=== PATIENT | female | born 1975 | race Caucasian/White ===

== ENCOUNTER 2018-12-14 09:11 | Emergency (ER) | payer SELFPAY ==
[2018-12-14 09:18] VITALS: BP 157/100
[2018-12-14] MEDS ORDERED: TETRACAINE HCL 0.5% OPH SOLN 4 ML OS ONE (09:44)
--- NOTE | 2018-12-14 10:05 | ER Document Report ---
ED Eye Complaint - General Chief Complaint: Eye Pain Stated Complaint: EYE PROBLEM Time Seen by Provider: 12/14/18 09:43 Primary Care Provider: [facility] [Provider Group] - Follow up as needed AGNES WATKINS [NO LOCAL MD] - Follow up as needed Mode of Arrival: Ambulatory Information source: Patient Notes: 43-year-old female presented to ED for complaint of left eye irritation and drainage. She states she woke up about 2:00 with pain in her eye. She states she took her contact lens out at that time. She states she has had eye drainage and pain in the eyes since then. She is patting her eye there is no redness surrounding her eye in her eye does not look red at this time but there is drainage. She is frequently touching her eye. She does have a runny nose congestion. TRAVEL OUTSIDE OF THE [place] IN LAST 30 DAYS: No - HPI Eye location: Left Injury: No Occurred at: Home, Indoors Quality of pain: Burning Severity: Severe Pain Level: 5 Contact lenses worn: Yes - removed at 2 am Contact lenses: Sleeps in them Associated symptoms: Burning, Pain - Related Data Allergies/Adverse Reactions: No Known Allergies Allergy (Verified 12/14/18 09:23) Past Medical History - General Information source: Patient - Social History Smoking Status: Current Every Day Smoker Cigarette use (# per day): Yes - ppd Smoking Education Provided: Yes - 4 min Frequency of alcohol use: Social Drug Abuse: Marijuana Lives with: Family Family History: Reviewed & Not Pertinent Patient has suicidal ideation: No Patient has homicidal ideation: No - Past Medical History Cardiac Medical History: Reports: Hx Hypertension Pulmonary Medical History: Reports: None EENT Medical History: Reports: None Neurological Medical History: Reports: Hx Migraine Endocrine Medical History: Reports: Hx Diabetes Mellitus Type 2 Renal/ Medical History: Reports: None Malignancy Medical History: Reports: None GI Medical History: Reports: None Musculoskeletal Medical History: Reports None Skin Medical History: Reports None Psychiatric Medical History: Reports: None Traumatic Medical History: Reports: None Infectious Medical History: Reports: None Past Surgical History: Reports: Hx Cholecystectomy - Immunizations Immunizations up to date: No Hx Diphtheria, Pertussis, Tetanus Vaccination: No Review of Systems - Review of Systems Constitutional: No symptoms reported EENT: Eye pain, Eye discharge, Blurred vision, Tearing Cardiovascular: No symptoms reported Respiratory: No symptoms reported Gastrointestinal: No symptoms reported Genitourinary: No symptoms reported Female Genitourinary: No symptoms reported Musculoskeletal: No symptoms reported Skin: No symptoms reported Hematologic/Lymphatic: No symptoms reported Neurological/Psychological: No symptoms reported -: Yes All other systems reviewed and negative Physical Exam - Vital signs Vitals: Temp Pulse Resp BP Pulse Ox 98.6 F 85 14 157/100 H 99 12/14/18 09:16 12/14/18 09:16 12/14/18 09:16 12/14/18 09:16 12/14/18 09:16 Interpretation: Normal - General General appearance: Appears well, Alert - HEENT Head: Normocephalic, Atraumatic Eyes: Normal Cornea: Normal. No: Embedded foreign body, Flourescein stain uptake Pupils: PERRL Lids everted for exam: bilateral: Normal Visual krishnan normal: Yes Ears: Normal External canal: Normal Tympanic membrane: Normal Sinus: Normal Nasal: Purulent discharge, Swelling Mouth/Lips: Normal Mucous membranes: Normal Pharynx: Post nasal drainage Neck: Normal - Respiratory Respiratory status: No respiratory distress Chest status: Nontender Breath sounds: Normal Chest palpation: Normal - Cardiovascular Rhythm: Regular Heart sounds: Normal auscultation Murmur: No - Abdominal Inspection: Normal Distension: No distension Bowel sounds: Normal Tenderness: Nontender Organomegaly: No organomegaly - Back Back: Normal, Nontender - Extremities General upper extremity: Normal inspection, Nontender, Normal color, Normal ROM, Normal temperature General lower extremity: Normal inspection, Nontender, Normal color, Normal ROM, Normal temperature, Normal weight bearing. No: Soy's sign - Neurological Neuro grossly intact: Yes Cognition: Normal Orientation: AAOx4 [place] Coma Scale Eye Opening: Spontaneous [place] Coma Scale Verbal: Oriented [place]ria Coma Scale Motor: Obeys Commands [place] Coma Scale Total: 15 Speech: Normal Motor strength normal: LUE, RUE, LLE, RLE Sensory: Normal - Psychological Associated symptoms: Normal affect, Normal mood - Skin Skin Temperature: Warm Skin Moisture: Dry Skin Color: Normal Course - Re-evaluation Re-evalutation: 12/14/18 14:[address] Garcia who came and examined the eye. He recommended patient be placed on antibiotic eyedrops. Her primary demonstrator knitting was called and they stated they could see her at the active care center in [place] at 230. Patient was informed that she was to be at the care center and [place] while at [address] and she was discharged home with a bottle of Polytrim for her eye. Patient was instructed not to put in her contact lens until she has been followed up with the demonstrator knitting. Patient verbalized she was going to be sure to keep her appointment as scheduled at the demonstrator knitting. - Vital Signs Vital signs: Temp Pulse Resp BP Pulse Ox 98.6 F 85 14 157/100 H 99 12/14/18 09:16 12/14/18 09:16 12/14/18 09:16 12/14/18 09:16 12/14/18 09:16 Discharge - Discharge Clinical Impression: URI (upper respiratory infection) Qualifiers: URI type: unspecified viral URI Qualified Code(s): J06.9 - Acute upper respiratory infection, unspecified Conjunctivitis, left eye Qualifiers: Conjunctivitis type: unspecified Qualified Code(s): H10.9 - Unspecified conjunctivitis Condition: Stable Disposition: HOME, SELF-CARE Additional Instructions: UPPER RESPIRATORY ILLNESS: You have a viral infection of the respiratory passages -- a "cold." This common infection causes nasal congestion, drainage, and often sore throat and cough. It is highly contagious. The disease usually lasts about 10 to 14 days. There is no "cure" for the viral infection -- it must run its course. If there is a complication, such as bacterial infection in the nose, sinuses, middle ear, or bronchial tubes, antibiotics may be required. The antibiotics won't affect the virus. Drink plenty of fluids. A humidifier may help. An expectorant medication or decongestant may make you more comfortable. Use acetaminophen or ibuprofen for fever or aches. See the doctor if fever persists over two days, if there is any significant worsening of your symptoms, or if you simply fail to improve as expected. CONJUNCTIVITIS: You have an infection in your eye, commonly known as "pink eye." Conjunctivitis causes redness, mild discomfort, itching, and mattering on the eyelids. It is very contagious, so you must be careful to wash your hands after touching your face so you don't pass the infection on to others. Conjunctivitis is caused by both viruses and bacteria. It usually responds quickly to treatment with antibiotic drops. These should be placed in the eye as prescribed (usually every three to four hours while you're awake). If you wear contact lenses, don't put them in your eyes until the infection is cleared and you are no longer using the drops (unless your doctor advises you otherwise). Should you develop increasing eye pain, severe swelling, decreased vision, or fail to improve as expected, please return for re-examination. EYEDROP USE: Eyedrops are most easily applied by pulling down on the cheek just below the lower eyelid. The lower lid will pop out to form a pouch into which you can drop the medicine. A small brief sting is not unusual, especially if the eye is reddened and irritated already. Use the drops exactly as recommended. You should see the doctor at once if there is a decrease in vision, swelling of the eye, or an increase in discomfort. ANTIBIOTIC THERAPY: You have been given an antibiotic prescription. It's important that you take all the medication, unless instructed otherwise by your physician. Failure to complete the entire course can result in relapse of your condition. Common side effects of antibiotics include nausea, intestinal cramping, or diarrhea. Women may develop vaginal yeast infections, and babies can get yeast (thrush) in the mouth following the use of antibiotics. Contact your physician if you develop significant side effects from this medication. Allergy to this antibiotic can result in hives, wheezing, faintness, or itching. If symptoms of allergy occur, stop the medication and call the doctor. USE OF ACETAMINOPHEN (Tylenol): Acetaminophen may be taken for pain relief or fever control. It's much safer than aspirin, offering a wider range of "safe" dosages. It is safe during . Some brand names are Tylenol, Panadol, Datril, Anacin 3, Tempra, and Liquiprin. Acetaminophen can be repeated every four hours. The following are maximum recommended dosages: >89 pounds or adults 650 mg to 900 mg Acetaminophen can be repeated every four hours. Maximum dose not to exceed 4000 mg a day. SMOKING: If you smoke, you should stop smoking. The tar and chemicals in cigarette smoke are harmful. Smoking has been shown to cause: emphysema chronic bronchitis lung cancer mouth and throat cancer stomach and pancreas cancer premature aging defects In addition, smoking increases ear and lung infections in children of smokers. FOLLOW-UP CARE: If you have been referred to a physician for follow-up care, call the physicians office for an appointment as you were instructed or within the next two days. If you experience worsening or a significant change in your symptoms, notify the physician immediately or return to the Emergency Department at any time for re-evaluation. I have called [facility] center in [place] who you state are it is your eye doctor and they will see you at [address] today please be sure to be present at this appointment to follow-up with your I thank you Forms: Elevated Blood Pressure, Smoking Cessation Education Referrals: JUNE,NO [NO LOCAL MD] - Follow up as needed [facility] [Provider Group] - Follow up as needed
[2018-12-14] MEDS ORDERED: POLYMYXIN B SULFATE/TMP OPH SOLN (10 ML/ER DISP) OS SCH (10:30)
== END 2018-12-14 10:40 | disposition home or self-care (01) ==
LOC: ER 09:11
DX: J06.9 Acute upper respiratory infection, unspecified (principal); H10.9 Unspecified conjunctivitis; H57.12 Ocular pain, left eye; R09.89 Other specified symptoms and signs involving the circulatory and respiratory systems; R09.81 Nasal congestion; F17.210 Nicotine dependence, cigarettes, uncomplicated; I10 Essential (primary) hypertension; E11.9 Type 2 diabetes mellitus without complications
CPT/HCPCS: 99406; 99283; J3490 ×2

== ENCOUNTER 2020-01-31 14:37 | Emergency (ER) | payer BC ==
--- NOTE | 2020-01-31 15:57 | ER Document Report ---
ED Extremity Problem, Upper - General Chief Complaint: Arm Pain Stated Complaint: RIGHT ARM PAIN Time Seen by Provider: 01/31/20 15:46 Primary Care Provider: [facility] [[facility]] - Follow up as needed Mode of Arrival: Ambulatory Information source: Patient Notes: 44-year-old female presented to ED for complaint of right arm elbow and shoulder pain. 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 She is alert oriented respirations regular nonlabored speaking in full sentences. TRAVEL OUTSIDE OF THE [place] IN LAST 30 DAYS: No - HPI Patient complains to provider of: Injury, Pain, Right, Elbow, Forearm, Shoulder Onset: This morning Recent injury: Possibly Where: Work Quality of pain: Burning, Sharp Severity of pain: Moderate Pain Level: 3 Context: Other - Lifting Exacerbated by: Movement Relieved by: Rest, Positioning Similar symptoms previously: No Recently seen / treated by doctor: No - Related Data Allergies/Adverse Reactions: No Known Allergies Allergy (Verified 01/31/20 15:39) Past Medical History - General Information source: Patient - Social History Smoking Status: Current Every Day Smoker Chew tobacco use (# tins/day): No Frequency of alcohol use: Rare Drug Abuse: None Occupation: Care Lives with: Spouse/Significant other Family History: Reviewed & Not Pertinent Patient has suicidal ideation: No Patient has homicidal ideation: No - Past Medical History Cardiac Medical History: Reports: None, Hx Hypertension Pulmonary Medical History: Reports: Hx Bronchitis, Hx Pneumonia EENT Medical History: Reports: None Neurological Medical History: Reports: Hx Migraine Endocrine Medical History: Reports: Hx Diabetes Mellitus Type 2 Renal/ Medical History: Reports: None Malignancy Medical History: Reports: None GI Medical History: Reports: None Musculoskeletal Medical History: Reports Hx Arthritis, Reports Hx Musculoskeletal Deformity Skin Medical History: Reports None Psychiatric Medical History: Reports: None Traumatic Medical History: Reports: None Infectious Medical History: Reports: None Past Surgical History: Reports: Hx Cholecystectomy, Other - Colege - Immunizations Immunizations up to date: No Hx Diphtheria, Pertussis, Tetanus Vaccination: No Review of Systems - Review of Systems Constitutional: No symptoms reported EENT: No symptoms reported Cardiovascular: No symptoms reported Respiratory: No symptoms reported Gastrointestinal: No symptoms reported Genitourinary: No symptoms reported Female Genitourinary: No symptoms reported Musculoskeletal: Joint pain, Muscle pain, Muscle stiffness. denies: Joint swelling Skin: No symptoms reported Hematologic/Lymphatic: No symptoms reported Neurological/Psychological: No symptoms reported -: Yes All other systems reviewed and negative Physical Exam - Vital signs Vitals: Temp Pulse Resp BP Pulse Ox 98.0 F 91 18 149/100 H 100 01/31/20 14:44 01/31/20 14:44 01/31/20 14:44 01/31/20 14:44 01/31/20 14:44 Interpretation: Normal - General General appearance: Appears well, Alert - HEENT Head: Normocephalic, Atraumatic Eyes: Normal Pupils: PERRL - Respiratory Respiratory status: No respiratory distress Chest status: Nontender Breath sounds: Normal Chest palpation: Normal - Cardiovascular Rhythm: Regular Heart sounds: Normal auscultation Murmur: No - Abdominal Inspection: Normal Distension: No distension Bowel sounds: Normal Tenderness: Nontender Organomegaly: No organomegaly - Back Back: Normal, Nontender - Extremities General upper extremity: Normal color, Normal ROM, Normal temperature General lower extremity: Normal inspection, Nontender, Normal color, Normal ROM, Normal temperature, Normal weight bearing. No: Soy's sign Shoulder: Tender Arm: Tender Elbow: Tender - Neurological Neuro grossly intact: Yes Cognition: Normal Orientation: AAOx4 Andria Coma Scale Eye Opening: Spontaneous [place] Coma Scale Verbal: Oriented [place] Coma Scale Motor: Obeys Commands Andria Coma Scale Total: 15 Speech: Normal Motor strength normal: LUE, RUE, LLE, RLE Sensory: Normal - Psychological Associated symptoms: Normal affect, Normal mood - Skin Skin Temperature: Warm Skin Moisture: Dry Skin Color: Normal Course - Re-evaluation Re-evalutation: 01/31/20 18:32 X-ray of shoulder and elbow were both negative. Patient was instructed elevation ice, exercise, and follow-up with orthopedics or sports medicine. X- rays reports were given to patient to follow-up. Patient was able to verbalize understanding and agreement with treatment plan and patient was discharged home. - Vital Signs Vital signs: Temp Pulse Resp BP Pulse Ox 98.4 F 87 16 137/99 H 99 01/31/20 16:54 01/31/20 16:54 01/31/20 16:54 01/31/20 16:54 01/31/20 16:54 - Diagnostic Test Radiology reviewed: Image reviewed, Reports reviewed Procedures - Immobilization Right Elbow Time completed: 17:05 Pre-Proc Neuro Vasc Exam: Normal Immobilizer type: Sling Performed by: PCT Post-Proc Neuro Vasc Exam: Normal Alignment checked and good: No Discharge - Discharge Clinical Impression: Pain of both elbows Pain in right shoulder Qualifiers: Chronicity: acute Qualified Code(s): M25.511 - Pain in right shoulder Condition: Stable Disposition: HOME, SELF-CARE Additional Instructions: You were seen today for pain in your right shoulder and elbow. X-rays to the joints are negative. You state you felt a tearing sensation which could be a muscle or tendon or ligament. I will have you follow-up with the primary care and/or orthopedics. Please call your Worker's [employer]. doctor today call your work and schedule a follow-up appointment with a sports medicine or orthopedic Ice Packs Apply ice packs frequently against the painful area. Many different schedules are recommended, such as "20 minutes on, 20 minutes off" or "one hour ice, two hours rest." If you need to work, you may need to go longer between ice treatments. You should plan to have the area ice packed AT LEAST one fourth of the time. The ice should be applied over the wrap, tape, or splint, or over a layer of cloth -- not directly against the skin. Some ice bags have a built-in cloth and can be put directly on the skin. Warm Packs After approximately two days, apply gentle heat (such as a heating pad or hot water bottle) for about 20 to 30 minutes about every two hours -- at least four times daily. Warmth and elevation will help you make a more rapid recovery, and will ease the pain considerably. Do not use HOT heat, and never apply heat for longer than 30 minutes. The continuous heat can invisibly damage skin and muscles -- even when no burn is seen on the surface. Damaged muscles can make you MORE sore. Exercise Program for the Shoulder Since the shoulder moves in so many directions, the joint attachment is weak. Muscles provide most of the stability to the shoulder. You must exercise your shoulder to prevent painful instability or stiffening. PASSIVE - These may be begun within a few days of the injury. While standing, lean forward, allowing the arm to hang down towards the floor. Move the arm in small circles while slowly twisting your chest towards and away from the hanging arm. Do this for one minute. ACTIVE - These may be performed when the doctor gives permission. Begin with the arms at the sides. Raise the arms forward (shoulder's width apart) until they reach shoulder level. Then slowly swing both arms back until they are aiming straight out away from each other. Then bring them forward again, and finally, lower them to your sides. Repeat 20 to 30 times. As you improve, put weights in your hands for the exercise. Start with one pound, and work up to 10 pounds. Never use more than is comfortable. Athletes may work up to 30 pounds. Please do full range of motion to your elbow frequently to reduce frozen joint. FOLLOW-UP CARE: If you have been referred to a physician for follow-up care, call the physicians office for an appointment as you were instructed or within the next two days. If you experience worsening or a significant change in your symptoms, notify the physician immediately or return to the Emergency Department at any time for re-evaluation. Forms: Elevated Blood Pressure, Special Work Note, Smoking Cessation Education, Return to Work Referrals: [facility] ([facility] [Provider Group] - Follow up as needed
--- NOTE | 2020-01-31 16:17 | RADIOLOGY REPORT (SQ) ---
EXAM DESCRIPTION: ELBOW RIGHT OVER 2 VIEWS IMAGES COMPLETED DATE/TIME: 01/31/2020 4:08 pm REASON FOR STUDY: pain and injury COMPARISON: None. NUMBER OF VIEWS: Four views. TECHNIQUE: AP, lateral, and both oblique radiographic images acquired of the right elbow. LIMITATIONS: None. FINDINGS: MINERALIZATION: Normal. BONES: No acute fracture or dislocation. No worrisome bone lesions. JOINT: No effusion. SOFT TISSUES: No soft tissue swelling. No foreign body. OTHER: No other significant finding. IMPRESSION: NEGATIVE STUDY OF THE RIGHT ELBOW. NO RADIOGRAPHIC EVIDENCE OF ACUTE INJURY. TECHNICAL DOCUMENTATION: JOB ID: [id number] 2010 [employer]- All Rights Reserved Reading location - IP/workstation name: [email or web address]
--- NOTE | 2020-01-31 16:20 | RADIOLOGY REPORT (SQ) ---
EXAM DESCRIPTION: SHOULDER RIGHT 2 OR MORE VIEWS IMAGES COMPLETED DATE/TIME: 01/31/2020 4:08 pm REASON FOR STUDY: pain and injury COMPARISON: None. NUMBER OF VIEWS: Three views. TECHNIQUE: Internal rotation, external rotation, and Y view images acquired of the right shoulder. LIMITATIONS: None. FINDINGS: MINERALIZATION: Normal. BONES: No acute fracture. No worrisome bone lesions. JOINTS: No dislocation. VISUALIZED LUNGS AND RIBS: No pneumothorax. No rib fracture. SOFT TISSUES: No radiopaque foreign body. OTHER: No other significant finding. IMPRESSION: NEGATIVE STUDY OF THE RIGHT SHOULDER. NO RADIOGRAPHIC EVIDENCE OF ACUTE INJURY. TECHNICAL DOCUMENTATION: JOB ID: [id number] 2010 [employer]- All Rights Reserved Reading location - IP/workstation name: [email or web address]
[2020-01-31 16:55] VITALS: BP 137/99
== END 2020-01-31 18:08 | disposition home or self-care (01) ==
LOC: ER 14:37
DX: M25.521 Pain in right elbow (principal); M25.522 Pain in left elbow; M25.511 Pain in right shoulder; M79.10 Myalgia, unspecified site; X50.0XXA Overexertion from strenuous movement or load, initial encounter; Y93.F2 Activity, caregiving, lifting; Y99.0 Civilian activity done for income or pay; F17.200 Nicotine dependence, unspecified, uncomplicated; I10 Essential (primary) hypertension; E11.9 Type 2 diabetes mellitus without complications
CPT/HCPCS: 99283

== ENCOUNTER 2020-07-09 00:03 | Emergency (ER) | payer BC ==
[2020-07-09 01:34] LABS: ABSOLUTE BASOPHILS # (AUTO) 0.1 10^3/uL (0.0-0.2); ABSOLUTE EOSINOPHILS # (AUTO) 0.3 10^3/uL (0.0-0.6); ABSOLUTE LYMPHOCYTES (AUTO) 2.8 10^3/uL (0.5-4.7); ABSOLUTE MONOCYTES (AUTO) 1.1 10^3/uL (0.1-1.4); ABSOLUTE NEUT (AUTO) 11.5 10^3/uL (1.7-8.2); BASOPHILS % (AUTO) 0.7 % (0-2); EOSINOPHILS % (AUTO) 1.6 % (0-6); HEMATOCRIT 46.8 % (36.0-47.0); HEMOGLOBIN 16.1 g/dL (12.0-15.5); LYMPHOCYTES % (AUTO) 17.9 % (13-45); MEAN CORPUSCULAR HEMOGLOBIN 30.6 pg (27.0-33.4); MEAN CORPUSCULAR HGB CONC 34.5 g/dL (32.0-36.0); MEAN CORPUSCULAR VOLUME 89 fl (80-97); MONOCYTES % (AUTO) 6.8 % (3-13); PLATELET COUNT 289 10^3/uL (150-450); RED BLOOD COUNT 5.27 10^6/uL (3.72-5.28); RED CELL DISTRIBUTION WIDTH 13.8 % (11.5-14.0); TOTAL CELLS COUNTED % (AUTO) 100 %; WHITE BLOOD COUNT 15.8 10^3/uL (4.0-10.5)
[2020-07-09 01:47] LABS: ALBUMIN 4.2 g/dL (3.5-5.0); ALKALINE PHOSPHATASE 79 U/L (38-126); ANION GAP 11 (5-19); ASPARTATE AMINO TRANSFERASE 15 U/L (14-36); BILIRUBIN,DIRECT 0.3 mg/dL (0.0-0.4); BILIRUBIN,TOTAL 0.6 mg/dL (0.2-1.3); BLOOD UREA NITROGEN 12 mg/dL (7-20); CALCIUM 9.5 mg/dL (8.4-10.2); CARBON DIOXIDE 28 mmol/L (22-30); CHLORIDE 100 mmol/L (98-107); CREATINE KINASE 69 U/L (30-135); GLUCOSE 252 mg/dL (75-110)
[2020-07-09 01:58] LABS: CREATINE KINASE MB 0.32 ng/mL (<4.55)
[2020-07-09 02:03] LABS: TROPONIN I < 0.012 ng/mL
--- NOTE | 2020-07-09 02:04 | ER Document Report ---
ED General - General Chief Complaint: Chest Pressure Stated Complaint: CHEST PAIN Time Seen by Provider: 07/09/20 02:03 TRAVEL OUTSIDE OF THE [place] IN LAST 30 DAYS: No - HPI Notes: 44-year-old female presents with chest pressure, she notes that it is not pain, just pressure. States that she was driving when she had onset of chest pressure, onset 1 hour prior to arrival, which would be approximately 11 PM. She states there is not a stressful incident that occurred while driving. Pain is been constant since its onset, it is in the center of her chest and radiates to her back. Chest pain did not change with exertion. She denies fever, cough or shortness of breath. Denies nausea, vomiting or diarrhea. She has not had pain like this before. She has a history of hypertension, high cholesterol and diabetes. She is a current smoker. She denies any known cardiac history. She had a COVID exposure last , she had a test done, results are pending. - Related Data Allergies/Adverse Reactions: No Known Allergies Allergy (Verified 01/31/20 15:39) Home Medications: farsega, lisinopril, atorvastatin, singuliar, wellbutrin, lexapro, proair inhaler, Past Medical History - General Information source: Patient - Social History Smoking Status: Current Every Day Smoker Family History: Reviewed & Not Pertinent - Past Medical History Cardiac Medical History: Reports: Hx Hypertension Pulmonary Medical History: Reports: Hx Bronchitis, Hx Pneumonia Neurological Medical History: Reports: Hx Migraine Endocrine Medical History: Reports: Hx Diabetes Mellitus Type 2 Musculoskeletal Medical History: Reports Hx Arthritis, Reports Hx Musculoskeletal Deformity Past Surgical History: Reports: Hx Cholecystectomy, Hx Gynecologic Surgery, Other - Colege - Immunizations Immunizations up to date: No Hx Diphtheria, Pertussis, Tetanus Vaccination: No Review of Systems - Review of Systems Constitutional: denies: Chills, Fever EENT: No symptoms reported Cardiovascular: Chest pain Respiratory: denies: Cough, Short of breath Gastrointestinal: denies: Abdominal pain, Nausea, Vomiting Genitourinary: No symptoms reported Female Genitourinary: No symptoms reported Musculoskeletal: Back pain Skin: No symptoms reported Neurological/Psychological: No symptoms reported Physical Exam - Vital signs Vitals: Temp Pulse Resp BP Pulse Ox 97.8 F 83 20 142/94 H 99 07/09/20 00:41 07/09/20 00:41 07/09/20 00:41 07/09/20 00:41 07/09/20 00:41 - General General appearance: Appears well, Alert - HEENT Head: Normocephalic, Atraumatic Eyes: No: Scleral icterus Extraocular movements intact: Yes Pupils: PERRL Neck: Other - No JVD - Respiratory Respiratory status: No respiratory distress Breath sounds: Normal - Cardiovascular Rhythm: Regular Heart sounds: Normal auscultation Pulses: Normal: Radial - Abdominal Bowel sounds: Normal Tenderness: Nontender - Extremities General lower extremity: No: Edema - Neurological Neuro grossly intact: Yes Cognition: Normal Orientation: AAOx4 - Psychological Associated symptoms: Normal affect - Skin Skin Temperature: Warm Course - Re-evaluation Re-evalutation: 07/09/20 02:42 44-year-old female with onset of central chest pressure around 11 PM [address]. Pain does sound somewhat atypical in nature for cardiac chest pain. She has no exertional symptoms. No known cardiac disease but would have risk factors including HTN/HLD/DM and is a smoker. Lungs clear, heart regular rate and rhythm, pulses symmetric. Given her description of the pain, CTA ordered to rule out dissection or PE. Cardiac work-up initiated, EKG without gross ST elevation. Will need to troponins. Aspirin and morphine ordered for symptomatic control. 07/09/20 03:15 Patient reported nausea after morphine administration, Zofran ordered 07/09/20 03:50 CTA chest reviewed. Per radiology there is no evidence of PE or dissection there is a note of a right breast mass which was seen on mammogram in June. Will update patient. 07/09/20 04:39 Trop neg x2 07/09/20 05:20 Updated patient on reassuring work-up. On further discussion, patient states that potentially she was experiencing an anxiety attack. She states that she felt herself getting anxious and starting to tense up. I discussed with her another possibility could be esophageal spasm given her history of acid reflux. She has had pain relief, she is much more well-appearing. She is aware of the right breast mass, she is supposed to have a repeat mammogram done today. We discussed return precautions, patient was stable at time of discharge. - Vital Signs Vital signs: Temp Pulse Resp BP Pulse Ox 97.8 F 83 14 142/94 H 98 07/09/20 00:41 07/09/20 00:41 07/09/20 04:02 07/09/20 00:41 07/09/20 04:02 - Laboratory Result Diagrams: 07/09/20 01:18 07/09/20 01:18 Laboratory results interpreted by me: 07/09/20 07/09/20 01:18 01:18 WBC 15.8 H Hgb 16.1 H Absolute Neuts (auto) 11.5 H Glucose 252 H - Diagnostic Test Radiology reviewed: Image reviewed, Reports reviewed Discharge - Discharge Clinical Impression: Atypical chest pain Condition: Stable Disposition: HOME, SELF-CARE Additional Instructions: Please follow-up with mammogram as planned. Please discuss her symptoms with your doctor. Return to the emergency department any concerning worsening symptoms.
[2020-07-09] MEDS ORDERED: MORPHINE SULFATE 10 MG/ML INJ IV ONE (02:29)
[2020-07-09] MEDS ORDERED: ASPIRIN 81 MG TABLET, CHEWABLE PO ONE (02:29)
--- NOTE | 2020-07-09 02:33 | RADIOLOGY REPORT (SQ) ---
CHEST X-RAY 1 VIEW on 07/09/2020 at 2:04 AM CLINICAL INDICATION: Chest pain COMPARISON: 03/03/2013 FINDINGS: The lungs are clear. Cardiac, hilar and mediastinal contours are within normal limits. Pulmonary vascularity is within normal limits. No bony abnormality is noted. IMPRESSION: No active disease.
[2020-07-09] MEDS ORDERED: ONDANSETRON HCL INJ/PF 4 MG/2 ML SDV IV ONE (03:15)
--- NOTE | 2020-07-09 03:47 | RADIOLOGY REPORT (SQ) ---
CT angiogram chest with contrast on 07/09/2020 at 3:16 AM CLINICAL INDICATION: Chest pain radiating to back, question aortic dissection TECHNIQUE: Multiple axial images are obtained throughout the chest following the administration of IV contrast. Computer generated 3D reconstructions/MIPS were performed. This exam was performed according to our departmental dose-optimization program, which includes automated exposure control, adjustment of the mA and/or kV according to patient size and/or use of iterative reconstruction technique. Total DLP is 573.97 mGy*cm. COMPARISON: None FINDINGS: There is a 1.3 cm nodular soft tissue density in the medial right breast seen best on axial image 37 of series 3 and coronal image 16 of series 601. Recommend correlation with right breast mammography, breast ultrasound and physical exam. The patient did have a recent right mammogram on 06/25/2020 from [facility], [facility] with report of right breast mass with follow-up recommended. Please refer to that report and recommend appropriate follow-up. The patient is status post cholecystectomy. There is no pleural or pericardial effusion. There is no thoracic adenopathy. There is no thoracic aortic aneurysm or dissection. There are no filling defects within the pulmonary arteries to suggest pulmonary embolus. The lungs are clear. No bony abnormality is noted. IMPRESSION: 1. No evidence of pulmonary embolus and no evidence of thoracic aortic aneurysm or dissection. 2. 1.3 cm right breast apparent mass, this needs appropriate follow-up as above as the patient already had abnormal mammogram with additional evaluation requested per the outside report.
[2020-07-09 05:36] VITALS: BP 135/76
--- NOTE | 2020-07-09 08:50 | EKG REPORT ---
SEVERITY:- ABNORMAL ECG - SINUS RHYTHM LEFT AXIS DEVIATION ABNRM R PROG, CONSIDER ASMI OR LEAD PLACEMENT BORDERLINE T WAVE ABNORMALITIES : Confirmed by: Clinton Rizzo MD 09-Jul-2020 08:49:49
== END 2020-07-09 05:33 | disposition home or self-care (01) ==
LOC: ER 00:03
DX: R07.89 Other chest pain (principal); F17.200 Nicotine dependence, unspecified, uncomplicated; I10 Essential (primary) hypertension; E11.9 Type 2 diabetes mellitus without complications; Z90.49 Acquired absence of other specified parts of digestive tract
CPT/HCPCS: 93005; 99285; 96374; 96375; 36415; 82553; 82550; 85025; 80053; 84484; 71045; 71275; 93010; J2270; J2405